=== PATIENT | male | born 1975 | race Hispanic/Latino ===

== ENCOUNTER 2016-12-26 12:05 | Emergency (ER) | payer MEDICAID, OTHER ==
[~2016-12-26] VITALS: Ht 185.4 cm; Wt 104.5 kg
[2016-12-26 12:18] VITALS: BP 115/79; PULSE 84; RESP 16; O2SAT 97
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
[2016-12-26] MEDS ORDERED: Albuterol-Ipratropium 3 mL Inhalation Solution NEB ONE (14:20)
[2016-12-26 14:46] LABS: BASOPHILS % (AUTO) 0.4 % (0-3); MONOCYTES % (AUTO) 10.4 % (4-12); Mean Corpuscular Hemoglobin 28.9 pg (27.0-35.0); Mean Corpuscular Volume 84.6 fL (81-100); NEUTROPHILS % (AUTO) 56.6 % (40-74); Platelet Count 159 bil/L (150-400)
[2016-12-26 14:58] VITALS: PULSE 100; RESP 14; O2SAT 94
--- NOTE | 2016-12-26 15:06 | DRSVH ---
PROCEDURE: CT BRAIN WITHOUT CONTRAST ([id number]) INDICATIONS: 41 year-old male with possible head injury. TECHNIQUE: Noncontrast 4.5 mm thick angled axial sections acquired from the foramen magnum to the vertex, with c oronal reformats. COMPARISON: None. FINDINGS: Image quality: Excellent. CSF spaces: Basal cisterns are patent. No extra-axial fluid collections. Ventricles are normal in size and shape. Brain: No midline shift. No intracranial masses or hemorrhage. Antunez-white matter interface is norm al. Skull and face: Calvarium and visualized facial bones are intact, without suspicious lesions. Sinuses: Visualized sinuses and mastoids are clear, except for incompletely visualized bilateral max illary sinus mucus retention cysts or polyps. IMPRESSION: No acute intracranial abnormalities. Dictated by: Pravin Fermin M.D. on 12/26/2016 at 15:02 Approved by: Pravin Fermin M.D. on 12/26/2016 at 15:04
--- NOTE | 2016-12-26 15:07 | DRSVH ---
PROCEDURE: X-RAY CHEST, TWO VIEWS ([id number]) INDICATIONS: 41 year-old male with decreased breath sounds. TECHNIQUE: 2 views of the chest were acquired. COMPARISON: None. FINDINGS: Surgical changes and devices: None. Lungs and pleura: No pleural effusions or pneumothorax. Lungs are clear. Mediastinum: Mediastinal contours are normal. Heart size is normal. Bones and chest wall: No suspicious bony abnormalities. Soft tissues appear unremarkable. IMPRESSION: No acute cardiopulmonary disease. Dictated by: Pravin Fermin M.D. on 12/26/2016 at 15:04 Approved by: Pravin Fermin M.D. on 12/26/2016 at 15:05
[2016-12-26] MEDS ORDERED: Mupirocin 2% 22 Gm Ointment TOPICAL ONE (16:30)
--- NOTE | 2016-12-26 16:32 | DRSVH ---
PROCEDURE: US EXTREMITY SONOGRAM LIMITED ([id number]) INDICATIONS: Redness and pain, assess for abscess TECHNIQUE: Real-time scanning was performed of the left lower leg, with image documentation. COMPARISON: None. FINDINGS: There is a small 1.2 x 0.7 x 1.1 cm lesion with heterogeneous echotexture in the medial asp ect of the left lower leg in the area of erythema which has imaging characteristics most compatible w ith edema/inflammatory phlegmon. No drainable abscess identified. IMPRESSION: No drainable abscess identified in the left lower leg. Dictated by: Batsheva Maier MD, PhD on 12/26/2016 at 16:28 Approved by: Batsheva Maier MD, PhD on 12/26/2016 at 16:30
[2016-12-26 19:28] VITALS: BP 121/52; PULSE 72; RESP 20; O2SAT 97
== END 2016-12-26 19:28 | disposition home or self-care (01) ==
LOC: SED 12:05
DX: J45.30 Mild persistent asthma, uncomplicated (principal); S81.802A Unspecified open wound, left lower leg, initial encounter; X58.XXXA Exposure to other specified factors, initial encounter; Y92.89 Other specified places as the place of occurrence of the external cause; Y93.89 Activity, other specified; Y99.8 Other external cause status; F19.10 Other psychoactive substance abuse, uncomplicated; F17.200 Nicotine dependence, unspecified, uncomplicated; Z60.9 Problem related to social environment, unspecified; Z88.1 Allergy status to other antibiotic agents; Z88.6 Allergy status to analgesic agent
CPT/HCPCS: 36415; 70450; 71020; 76882; 80053; 85025; 94640; 99285; G0480; J7620